=== PATIENT | female | born 1955 | race Caucasian/White ===

== ENCOUNTER 2023-07-26 07:20 | Observation (INO) | payer MEDICARE ==
[2023-07-23 08:46] LABS: BASOPHILS % 0.3 % (0.0-1.0); EOSINOPHILS # (AUTO) 0.3 (0.0-0.4); EOSINOPHILS % 4.2 % (0.0-6.0); HEMATOCRIT 31.8 % (34.2-44.1); HEMOGLOBIN 10.8 g/dL (12.0-16.0); LYMPHOCYTES # (AUTO) 2.1 (1.0-3.2); LYMPHOCYTES % 27.6 % (18.0-39.1); MEAN CORPUSCULAR HEMOGLOBIN 29.8 pg (28-32); MEAN CORPUSCULAR VOLUME 87.6 fL (81-99); MONOCYTES # (AUTO) 0.5 (0.2-0.8); MONOCYTES % 6.5 % (4.4-11.3); NEUTROPHILS # (AUTO) 4.5 (2.1-6.9); NEUTROPHILS % 60.9 % (38.7-80.0); PLATELET COUNT 220 x10e3/uL (140-360); RED BLOOD COUNT 3.63 x10e6/uL (3.6-5.1); RED CELL DISTRIBUTION WIDTH 14.3 % (11.7-14.4); WHITE BLOOD COUNT 7.43 x10e3/uL (4.8-10.8)
[2023-07-26] MEDS: LACTATED RINGER'S 1,000 ML ONE (06:44)
[2023-07-26] MEDS: CEFAZOLIN SODIUM 2 GM ONE (06:45)
[2023-07-26] MEDS: GABAPENTIN 300 MG CAP ONE (06:45)
[2023-07-26] MEDS: CELECOXIB 200 MG CAP ONE (06:45)
[2023-07-26] MEDS: DEXAMETHASONE SOD PHOS 10 MG/1 ML VIAL ONE (06:46)
[~2023-07-26 07:20] MED LIST: AMLODIPINE BESY10 MG PO; CENTRUM WOMEN1 EACH PO; FIBER TABS625 MG PO; FISH OIL 1,0001 EAC7 PO; LIPITOR20 MG PO; LOSARTAN POTASS25 MG PO; NAPROSYN500 MG PO; SODIUM CHLORIDE 0.9% 500ML 500 ML ONE; TRANEXAMIC ACID 20 ML ONE; VITAMIN D31250 MCG PO; Vancomycin IV 1 GM VIAL ONE
[2023-07-26] MEDS ORDERED: ACETAMINOPHEN 1000 MG/100 ML 100 ML IV ONE (07:48)
[2023-07-26] MEDS ORDERED: ROPIVACAINE 246.25 MG, EPINEPHRINE HCL 1:1000 1ML 0.5 MG, CLONIDINE HCL 0.08 MG, KETORO... INJ ONE (08:00)
[2023-07-26] MEDS ORDERED: FENTANYL CITRATE/PF 100MCG/2 ML INJ ONE ×2 (08:09→13:21)
[2023-07-26] MEDS ORDERED: MIDAZOLAM HCL 2 MG/2 ML VIAL ONE (08:09)
[2023-07-26] MEDS ORDERED: FAMOTIDINE 20 MG/2 ML VIAL IV ONE (08:37)
[2023-07-26] MEDS ORDERED: DOCUSATE SODIUM 100 MG CAP PO PRN (10:15)
[2023-07-26] MEDS ORDERED: ONDANSETRON HCL INJ 2MG/ML 2ML 2 MG/ML VIAL IV PRN (10:15)
[2023-07-26] MEDS ORDERED: DIPHENHYDRAMINE HCL INJ 50 MG/ML VIAL IV PRN (10:15)
[2023-07-26] MEDS ORDERED: HYDROCODONE/APAP 7.5MG-325MG 1 EA TAB PO PRN (10:15)
[2023-07-26] MEDS ORDERED: SODIUM CHLORIDE 0.9% 1000ML 1,000 ML IV SCH (10:15)
[2023-07-26] MEDS ORDERED: HYDROCODONE/APAP 5MG-325MG TAB PO PRN (10:15)
[2023-07-26 10:20] VITALS: TEMP 99.3
[2023-07-26] MEDS: FENTANYL CITRATE/PF 100MCG/2 ML INJ ONE (10:30)
[2023-07-26] MEDS: TRAMADOL HCL 50 MG TAB ONE (11:00)
[2023-07-26] MEDS: HYDROCODONE/APAP 7.5MG-325MG 1 EA TAB PO ONE (11:28)
[2023-07-26] MEDS ORDERED: HYDROCODONE/APAP 7.5MG-325MG 1 EA TAB ONE (11:30)
[2023-07-26] MEDS: ONDANSETRON HCL INJ 2MG/ML 2ML 2 MG/ML VIAL IV ONE (12:25)
[2023-07-26] MEDS ORDERED: ONDANSETRON HCL INJ 2MG/ML 2ML 2 MG/ML VIAL ONE ×2 (12:26→12:42)
[2023-07-26] MEDS ORDERED: PROPOFOL IV EMULSION 10 MG/ML 20 ML VIAL ONE (12:42)
[2023-07-26] MEDS ORDERED: SEVOFLURANE INHAL SOLN 250 ML PEN BTL ONE (12:42)
[2023-07-26] MEDS ORDERED: KETOROLAC TROMETHAMINE 30 MG/ML VIAL ONE (12:42)
[2023-07-26] MEDS ORDERED: LIDOCAINE HCL 2% LOCAL INJ 5 ML SDV VIAL INJ ONE (12:42)
[2023-07-26] MEDS ORDERED: METOCLOPRAMIDE HCL 10 MG/2ML VIAL ONE (12:42)
[2023-07-26] MEDS ORDERED: DEXAMETHASONE SOD PHOS 10 MG/1 ML VIAL ONE (12:52)
[2023-07-26] MEDS ORDERED: ROPIVACAINE 0.5% 5 MG/ML 30 ML SDV ONE (12:52)
[2023-07-26 14:30] VITALS: BP 158/80; PULSE 74; RESP 15; O2SAT 97
[2023-07-26] MEDS ORDERED: ASPIRIN81 MG PO (15:16)
[2023-07-26] MEDS ORDERED: ASPIRIN 325 MG TAB PO SCH (17:00)
[2023-07-26] MEDS ORDERED: CELECOXIB 100 MG CAP PO SCH (17:00)
[2023-07-27] MEDS ORDERED: ACETAMINOPHEN 1000 MG/100 ML IV PRN (10:15)
== END 2023-07-26 16:20 | disposition home health service (06) ==
LOC: OR 07:20 → PACU V 11:41
PROVIDERS: ADMIT Specialist; ATTEND Specialist
DX: M16.11 Unilateral primary osteoarthritis, right hip (principal); G47.33 Obstructive sleep apnea (adult) (pediatric); E78.5 Hyperlipidemia, unspecified; I10 Essential (primary) hypertension; E66.01 Morbid (severe) obesity due to excess calories; K57.90 Diverticulosis of intestine, part unspecified, without perforation or abscess without bleeding; I44.0 Atrioventricular block, first degree; Z88.6 Allergy status to analgesic agent; Z01.810 Encounter for preprocedural cardiovascular examination; Z01.812 Encounter for preprocedural laboratory examination; Z01.818 Encounter for other preprocedural examination; Z79.1 Long term (current) use of non-steroidal anti-inflammatories (NSAID); Z79.899 Other long term (current) drug therapy; Z68.41 Body mass index [BMI] 40.0-44.9, adult; Z87.891 Personal history of nicotine dependence
CPT/HCPCS: 27130; 36415; 71046; 72170; 85025; 86850; 86900; 93005; 97116 ×2; 97161; 97530 ×2; C1713; C1776 ×4; G0378; J0131; J0171; J0690; J1100; J1885; J2001; J2250; J2405; J2704; J2765; J2795; J3010; J3370; J7040; J7121